=== PATIENT | male | born 1955 | race African-American/Black ===

== ENCOUNTER → 2017-04-03 | Outpatient (CLI) | payer MEDICARE, OTHER ==
[~2017-04-03] MED LIST: ALLO300T PO; ASPI81TA2 PO; CARV25TA2 PO; DILT180C11 PO; DILT180C4 PO; HYDR-2762 PO; HYDR500C16 PO; LISI-334 PO; PHEN37.5 PO; SILD100T PO
--- NOTE | 2017-04-03 13:34 | KCIC ---
PROCEDURE MRI brain without contrast. HISTORY Headache and visual disturbance, dizziness and giddiness, recent changes in hearing, continued blurred vision TECHNIQUE Multiplanar, multi sequential non contrast MR imaging was performed of the brain. COMPARISON None FINDINGS There is no restricted diffusion suggestive of a recent infarct or cytotoxic edema. There is a fairly large focus of signal abnormality of the right frontal deep white matter on the order of 1.5 cm AP x 1.4 centimeters transverse, overall signal features compatible with a cavernous malformation. Focus of relative decreased signal on the gradient echo sequence along the right parietal subarachnoid space is believed to be due to a vessel and motion. There is mild to moderate T2 and FLAIR hyperintense signal abnormality of the supratentorial white matter bilaterally, multiple tiny foci of signal change of the frontal parietal white matter. There is also small focus of the left temporal white matter. There is preservation of the major arterial intracranial flow voids at the skull base. There is mild patchy ethmoid air cell mucosal thickening. Frontal sinus is not pneumatized. Limited pneumatized mastoid air cells are aerated. Cerebellar tonsils are normal in location. There is adequate preservation of marrow signal of the clivus. There is no significant abnormality of the pituitary gland or the pineal gland. IMPRESSION 1. There is no evidence of recent infarct. 2. Mild to moderate T2 and FLAIR hyperintense signal abnormality of the supratentorial white matter bilaterally is nonspecific, could be due to chronic microvascular ischemic disease especially if risk factors such as hypertension or diabetes. Sequela of an inflammatory demyelinating disease is not excluded. 3. 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 Electronically signed by: Branden Hicks MD (April 03, 2017 13:33:24)
== END | disposition home or self-care (01) ==
LOC: KCIC MRI 12:01
PROVIDERS: ATTEND Family Medicine
DX: R51 Headache (principal); R42 Dizziness and giddiness; H53.9 Unspecified visual disturbance
CPT/HCPCS: 70551

== ENCOUNTER 2019-10-28 08:23 | Outpatient (CLI) | payer OTHER ==
[2019-10-28] VITALS (8 sets, daily range): BP systolic 131–149; BP diastolic 82–99
[~2019-10-28] VITALS: Ht 182.9 cm; Wt 144.2 kg
[~2019-10-28 08:23] MED LIST changes: +ASPI-630 PO; -ASPI81TA2 PO; -HYDR-2762 PO; +HYDR-2765 PO
[2019-10-28] MEDS ORDERED: ACET325T21 PO (08:55)
[2019-10-28] MEDS ORDERED: MECL25TA3 PO (08:55)
[2019-10-28] MEDS ORDERED: GUAI600T47 PO (08:55)
[2019-10-28] MEDS ORDERED: ALLO300T PO (08:55)
[2019-10-28] MEDS ORDERED: AMOX125S17 PO (08:55)
[2019-10-28] MEDS ORDERED: FLUT16SP NS (08:55)
[2019-10-28] MEDS ORDERED: DIPH25CA58 PO (08:55)
[2019-10-28] MEDS ORDERED: DILT240C2 PO (08:55)
[2019-10-28] MEDS ORDERED: MONT10TA49 PO (08:55)
[2019-10-28] MEDS ORDERED: AZEL137S3 NS (08:55)
[2019-10-28 08:57] LABS: BASO # 0.3 x10^3/uL (0.0-0.2); BASO % 3 % (0-3); EOS # 0.6 x10^3/uL (0.0-0.7); EOS % 7 % (0-3); HEMATOCRIT 48.5 % (39.0-53.0); HEMOGLOBIN 15.9 g/dL (13.0-17.5); LYMPH # 1.6 x10^3/uL (1.0-4.8); LYMPH % 18 % (24-48); MEAN CORPUSCULAR HEMOGLOBIN 29 pg (25-35); MEAN CORPUSCULAR HGB CONC 33 g/dL (31-37); MEAN CORPUSCULAR VOLUME 87 fL (79-100); MONO # 1.2 x10^3/uL (0.0-1.1); MONO % 13 % (0-9); NEUT # 5.6 x10^3/uL (1.8-7.7); NEUT % 60 % (31-73); PLATELET COUNT 753 x10^3/uL (140-400); RED CELL DISTRIBUTION WIDTH 15.4 % (11.5-14.5); WHITE BLOOD COUNT 9.2 x10^3/uL (4.0-11.0)
[2019-10-28 09:15] LABS: PROTHROMBIN TIME PATIENT 14.4 SEC (11.7-14.0)
[2019-10-28] MEDS ORDERED: MIDAZOLAM HCL/PF 2 MG/2 ML VIAL. ONE (09:26)
[2019-10-28] MEDS ORDERED: fentaNYL PF VIAL 100 MCG/2 ML VIAL ONE (09:26)
[2019-10-28] MEDS ORDERED: LIDOCAINE WITH 8.4% SOD BICARB 3 ML DISP.SYRIN. ONE (09:28)
[2019-10-28] MEDS ORDERED: LIDOCAINE WITH 8.4% SOD BICARB 3 ML DISP.SYRIN. IJ ONE (09:30)
[2019-10-28] MEDS ORDERED: fentaNYL PF VIAL 100 MCG/2 ML VIAL IV ONE (09:30)
[2019-10-28] MEDS ORDERED: MIDAZOLAM HCL/PF 2 MG/2 ML VIAL. IV ONE (09:30)
--- NOTE | 2019-10-28 09:34 | PDOC1 ---
History and Physical Date of Procedure Date of Admission 10.28.19 Procedure Procedure Bone marrow Bx Indication Indication Polycythemia History of Present Illness Reason for Visit Laboratory Tests Test 10/28/19 08:52 White Blood Count 9.2 x10^3/uL Red Blood Count 5.60 x10^6/uL Hemoglobin 15.9 g/dL Hematocrit 48.5 % Mean Corpuscular Volume 87 fL Mean Corpuscular Hemoglobin 29 pg Mean Corpuscular Hemoglobin Concent 33 g/dL Red Cell Distribution Width 15.4 % Platelet Count 753 x10^3/uL Neutrophils (%) (Auto) 60 % Lymphocytes (%) (Auto) 18 % Monocytes (%) (Auto) 13 % Eosinophils (%) (Auto) 7 % Basophils (%) (Auto) 3 % Neutrophils # (Auto) 5.6 x10^3/uL Lymphocytes # (Auto) 1.6 x10^3/uL Monocytes # (Auto) 1.2 x10^3/uL Eosinophils # (Auto) 0.6 x10^3/uL Basophils # (Auto) 0.3 x10^3/uL Platelet Estimate Pending Prothrombin Time 14.4 SEC Prothromb Time International Ratio 1.2 Activated Partial Thromboplast Time 33 SEC Current Medications Medications (Trade) Dose Ordered Sig/Bernardino Route PRN Reason Start Time Stop Time Status Last Admin Dose Admin Midazolam HCl (Versed) 2 mg STK-MED ONCE .ROUTE 10/28/19 09:26 10/28/19 09:26 DC Fentanyl Citrate (Fentanyl 2ml Vial) 100 mcg STK-MED ONCE .ROUTE 10/28/19 09:26 10/28/19 09:27 DC Lidocaine HCl (Buffered Lidocaine 1%) 3 ml STK-MED ONCE .ROUTE 10/28/19 09:28 10/28/19 09:28 DC same Past Medical History Past Medical History See nursing history Cardiovascular: HTN GI: GERD Current Medications Current Medications Current Medications Midazolam HCl (Versed) 2 mg STK-MED ONCE .ROUTE ; Start 10/28/19 at 09:26; Stop 10/28/19 at 09:26; Status DC Fentanyl Citrate (Fentanyl 2ml Vial) 100 mcg STK-MED ONCE .ROUTE ; Start 10/28/19 at 09:26; Stop 10/28/19 at 09:27; Status DC Lidocaine HCl (Buffered Lidocaine 1%) 3 ml STK-MED ONCE .ROUTE ; Start 10/28/19 at 09:28; Stop 10/28/19 at 09:28; Status DC Active Scripts Active Carvedilol 25 Mg Tablet 25 Mg PO BID Aspirin 81 Mg Tab.chew 81 Mg PO DAILY Lisinopril 20 Mg Tablet 20 Mg PO BID Reported Acetaminophen 325 Mg Tablet 2 Tab PO PRN Q4-6HRS PRN 24 Days Allopurinol 300 Mg Tablet 1 Tab PO DAILY Singulair Tablet (Montelukast Sodium) 10 Mg Tablet 10 Mg PO HS Meclizine Hcl 25 Mg Tablet 25 Mg PO DAILY Benadryl (Diphenhydramine Hcl) 25 Mg Capsule 25 Mg PO DAILY Cardizem Cd (Diltiazem Hcl) 240 Mg Cap.er.24h 1 Cap PO DAILY Viagra (Sildenafil Citrate) 100 Mg Tablet 1 Tab PO PRN PRN Allergies Allergies: Coded Allergies: No Known Drug Allergies (Unverified , 02/17/14) Physical Exam Vital Signs Vital Signs Date Time Temp Pulse Resp B/P (MAP) Pulse Ox O2 Delivery O2 Flow Rate FiO2 10/28/19 09:18 97.7 70 16 133/82 (99) 96 Room Air 97.7 Lungs: Clear to auscultation Heart: Regular rate Assessment Assessment Polycythemia Plan Plan Bone marrow Bx TATA RASHID MD Oct 28, 2019 09:34
--- NOTE | 2019-10-28 09:35 | PDOC ---
MODERATE SEDATION ASSESSMENT RISKS/ALTERNATIVES Risks/Alternatives Risks and alternatives of this type of sedation and procedure discussed with: RISK/ALTERNATIVES: Patient H & P ON CHART H & P H & P on chart and reviewed for co-morbid conditions and appropriate labs. H&P ON CHART: Yes STATUS PREG STATUS ASSESSED: Yes MEDS/ALLERGIES REVIEWED Meds/Allergies Reviewed Medications and Allergies including time and route of recently administered narcotics and sedatives. MEDS/ALLERGIES REVIEWED: Yes ASA RATING ASA RATING: II AIRWAY ASSESSMENT Airway Assessment Airway patency, oral function limitations, presence of caps, crowns, dentures, partials, and ability to extend neck assessed. AIRWAY ASSESSMENT: Yes MALLAMPATI SCORE MALLAMPATI SCORE: I PRE-SEDATION ASSESSMENT PRE-SEDATION ASSESSMENT: Yes TATA RASHID MD Oct 28, 2019 09:35
--- NOTE | 2019-10-28 11:28 | NUR ---
Discharge Note: SIA DAVIS Discharge instructions and discharge home medications reviewed with Patient and a copy given. All questions have been answered and understanding verbalized. The following instructions and handouts were given: adult moderate sedation and post bone marrow biopsy instructions Discontinued lines and drains: Peripheral IV intact. Patient discharged to Home or Self Care withFriendvia Ambulated
[2019-10-28 13:05] LABS: % ATYL 3 % (0-0); % BANDS 3 % (0-9); % BASOS 1 % (0-3); % EOS 11 % (0-5); % LYMPHS 18 % (24-48); % MONOS 15 % (0-10); % SEGS 49 % (35-66); PLT ESTIMATE INCREASED (ADEQUATE)
--- NOTE | 2019-10-28 17:18 | RAD ---
Type CT-guided bone marrow biopsy. 10/28/2019 3:15 PM Indication: Polycythemia Discussion: The risks and benefits of the procedure, including but not limited to, bleeding and infection were discussed patient. Informed consent was obtained. The patient was brought to the CT scanner and placed in the prone position. A timeout procedure was performed. Brand Activation Manager CT imaging of the pelvis demonstrated left ilium amenable to bone marrow biopsy. The overlying soft tissues were prepped and draped using maximum sterile barrier technique. 1% lidocaine without epinephrine was administered for local anesthesia. Under intermittent CT guidance, an OncControl needle was advanced into the bone marrow of the left iliac crest. 2 Aspirates and 1 core biopsy samples were obtained. Samples were delivered to pathology was present at the time of procedure. The needle was removed and manual pressure held to achieve hemostasis. No immediate complications were identified. The procedure was performed under conscious sedation including continuous cardiopulmonary monitoring via dedicated sedation nurse. Sedation time: 20 minutes Impression: Successful CT-guided bone marrow biopsy of the left iliac crest . PQRS Compliance Statement: One or more of the following individualized dose reduction techniques were utilized for this examination: 1. Automated exposure control 2. Adjustment of the mA and/or kV according to patient size 3. Use of iterative reconstruction technique
== END 2019-10-28 11:31 | disposition home or self-care (01) ==
LOC: INTRAD 08:23
PROVIDERS: ATTEND Internal Medicine Hematology & Oncology
DX: D75.1 Secondary polycythemia (principal); Z79.899 Other long term (current) drug therapy; Z79.01 Long term (current) use of anticoagulants
CPT/HCPCS: 36415; 38222; 77012; 85025; 85610; 85730; 88184; 88185; 88237; J2250; J3010; 85007; 99152